=== PATIENT | male | born 1950 | race Caucasian/White ===

== ENCOUNTER → 2017-12-17 | Outpatient (CLI) | payer OTHER ==
[~2017-12-17] MED LIST: ACIPHEX20 MG PO; AMBIEN10 MG PO; ASACOL HD800 MG PO; ASACOL400 MG PO; Ambien PO; CHANTIX1 MG PO; CIPRO HC OTIC S10 ML RIGHT EAR; DELZICOL400 M1 PO; FEOSOL325 MG PO; FERROUS SULFAT325 MG PO; FERROUS SULFATE PO; FOLVITE1 MG NG; GABAPENTIN100 MG PO; GEMFIBROZIL600 MG PO; IRON325 M1 PO; LISINOPRIL20 MG PO; LISINOPRIL40 MG PO; LO-DOSE ASPIRIN81 M2 PO; LOSARTAN POTASS50 MG PO; LYRICA100 MG PO; METFORMIN HCL1000 MG PO; METFORMIN PO; METOPROLOL SUC100 MG PO; MOBIC7.5 MG PO; Motrin PO; NITROSTAT0.4 MG PO; OSCAL, OYSTER500 MG PO; OXYCODONE HCL5 MG PO; PAXIL; PERCOCET 10/1 TABLET PO; PREDNISONE20 MG PO; PRILOSEC40 MG PO; RANITIDINE HCL300 MG PO; SYMBICORT60 INHALAT IH; VENTOLIN HFA18 GM IH; VYTORIN 10-801 EACH PO; WELCHOL625 MG PO; XANAX0.5 MG PO; XARELTO10 MG PO; Xanax PO; ZANAFLEX2 M1 PO; ZANAFLEX4 M1 PO; ZESTRIL20 MG PO; ZITHROMAX Z-PA250 MG PO; ZOFRAN4 MG PO
[2017-12-17 09:15] LABS: INTER. NORMALIZED RATIO 1.1
[2017-12-17 12:22] LABS: BODY FLUID GLUCOSE ND MG/DL; BODY FLUID LDH ND IU/L; BODY FLUID PROTEIN ND G/DL
[2017-12-17 12:47] LABS: APPEARANCE CLOUDY-BLOODY; BODY FLUID EOSINOPHILS 0 % (0-25); BODY FLUID RBC'S 24000 /MM^3 (0-100); BODY FLUID WBC'S 1150 /MM^3 (0-500); MONONUCLEAR WBC'S 36 %; POLYNUCLEAR WBC'S 64 % (0-25)
== END | disposition home or self-care (01) ==
LOC: OPR 08:16 → EDSTATUS 09:00
PROVIDERS: Orthopaedic Surgery
PROC: 0S9B3ZZ Drainage of Left Hip Joint, Percutaneous Approach (ICD-10-PCS; principal; 2017-12-17)
DX: M25.552 Pain in left hip (principal); Z96.642 Presence of left artificial hip joint
CPT/HCPCS: 77012; 82945; 82948; 83615 91; 84157; 85048; 85610; 85730; 87070; 87075; 87205; 89051; J1200; J3010